=== PATIENT | male | born 1985 | race Caucasian/White ===

== ENCOUNTER 2016-08-19 17:03 | Emergency (ER) | payer BC, OTHER ==
[~2016-08-19] VITALS: Ht 175.3 cm; Wt 82.0 kg
[~2016-08-19 17:03] MED LIST: AMPH10TA2 PO; CHOL100010 PO; METH5TAB4 PO; MULT-506 PO
[2016-08-19 17:25] VITALS: TEMP 37.7; Ht 175.3 cm; Wt 82.0 kg
[2016-08-19] MEDS ORDERED: SODIUM CHLORIDE 0.9% 1000ML 1,000 ML IV STA (18:12)
[2016-08-19] MEDS ORDERED: KETOROLAC TROMETHAMINE 30 MG/ML VIAL IV STA (18:12)
--- NOTE | 2016-08-19 18:14 | EMERGENCY ROOM VISIT NOTE ---
History Report prepared by Danuta: Umer Camacho Under the Supervision of: Dr. Matthew Grace M.D. First contact with patient: 18:06 Chief Complaint: REFERRED BY DOCTOR Stated Complaint: RUNNY NOSE, COUGH, NIGHT SWEATS, MILD FEVER, WEAK History of Present Illness The patient is a 31 year old male who presents to the Emergency Room with complaints of flu-like symptoms that began 4 days ago. The patient was referred to the ED by his doctor due to his persistent symptoms. The patient has been experiencing rhinorrhea, cough, chills, diaphoresis, fever, sore throat, and fever. He took Tylenol a couple of hours ago to try to moderate his symptoms. He denies any problems urinating or defecating. Source of History: patient Onset: 4 days ago Position: other (global) Symptom Intensity: moderate Quality: other (flu-like symptoms) Timing: other (persistent) Associated Symptoms: + chills, + cough, + diaphoresis, + fevers, + sorethroat, + weakness, No diarrhea, No hematochezia, No melena, No urinary symptoms Note: He has rhinorrhea. Review of Systems See HPI for pertinent positives & negatives. A total of 10 systems reviewed and were otherwise negative. Past Medical & Surgical Medical Problems: (1) ADHD (attention deficit hyperactivity disorder) (2) Circumcision Family History Patient reports no known family medical history. Social History Smoking Status: Never Smoker Smokeless Tobacco Use: No Alcohol Use: occasionally Marital Status: single Occupation Status: unemployed Current/Historical Medications Scheduled Cholecalciferol (Vitamin D3), 5,000 INTER.UNIT PO DAILY Methylphenidate (Ritalin), 5 MG PO QAM Prednisone (Prednisone Tab), 0 PO DAILY Sertraline (Zoloft), 100 MG PO DAILY Scheduled PRN Hydrocodone W/ Homatropine (Hycodan 5/1.5MG 5 Ml), 5 ML PO HS PRN for Cough Allergies Coded Allergies: No Known Allergies (Unverified , 11/18/11) Physical Exam Vital Signs Date Time Temp Pulse Resp B/P Pulse Ox O2 Delivery O2 Flow Rate FiO2 08/19/16 20:18 102 18 126/71 100 Room Air 08/19/16 19:43 93 18 120/71 100 Nebulizer 15.0 08/19/16 18:51 76 18 120/78 100 Nebulizer 15.0 2/20/17 18:41 79 20 96 Room Air 08/19/16 18:38 100 Venturi Mask 15.0 08/19/16 17:25 37.7 84 18 120/77 98 Room Air Physical Exam GENERAL: Patient is a healthy-appearing well-nourished HEAD: Normocephalic atraumatic EYES: Ocular movements intact pupils equal and react to light OROPHARYNX mucous membranes are moist no exudates present no erythema or edema present NECK: Supple no nuchal rigidity. No evidence of meningitis or encephalitis on exam. CHEST: Good equal expansion LUNGS: Clear and equal to auscultation CARDIAC: Normal S1 and S2 ABDOMEN: Soft nontender no guarding BACK: No CVA tenderness EXTREMITIES: No pain upon palpation normal muscle strength in all groups no clubbing cyanosis or edema NEURO: Patient is following commands is answering questions appropriately. Alert and oriented x3 Cranial Nerves 2-12 grossly intact Medical Decision & Procedures ER Provider Diagnostic Interpretation: X-ray results are stated below per interpretation by me and the radiologist: CHEST ONE VIEW PORTABLE CLINICAL HISTORY: Pt c/o SOB dyspnea COMPARISON STUDY: None FINDINGS: The bones soft tissues and hemidiaphragms are normal. The cardiomediastinal silhouette is normal. The lungs are clear. The pulmonary vasculature is normal. IMPRESSION: Negative chest. Electronically signed by: Mumtaz Bond M.D. 08/19/2016 7:02 PM Dictated Date/Time: 08/19/2016 7:01 PM Laboratory Results 08/19/16 18:38 Red Blood Count 4.70, Mean Corpuscular Volume 85.1, Mean Corpuscular Hemoglobin 29.8, Mean Corpuscular Hemoglobin Concent 35.0, Mean Platelet Volume 9.8, Neutrophils (%) (Auto) 66.6, Lymphocytes (%) (Auto) 17.0, Monocytes (%) (Auto) 15.0, Eosinophils (%) (Auto) 0.6, Basophils (%) (Auto) 0.4, Neutrophils # (Auto ) 4.67, Lymphocytes # (Auto) 1.19, Monocytes # (Auto) 1.05, Eosinophils # (Auto ) 0.04, Basophils # (Auto) 0.03 08/19/16 18:38 Test 08/19/16 18:38 White Blood Count 7.01 K/uL (4.8-10.8) Red Blood Count 4.70 M/uL (4.7-6.1) Hemoglobin 14.0 g/dL (14.0-18.0) Hematocrit 40.0 % (42-52) Mean Corpuscular Volume 85.1 fL (80-100) Mean Corpuscular Hemoglobin 29.8 pg (25-34) Mean Corpuscular Hemoglobin Concent 35.0 g/dl (32-36) Platelet Count 244 K/uL (130-400) Mean Platelet Volume 9.8 fL (7.4-10.4) Neutrophils (%) (Auto) 66.6 % Lymphocytes (%) (Auto) 17.0 % Monocytes (%) (Auto) 15.0 % Eosinophils (%) (Auto) 0.6 % Basophils (%) (Auto) 0.4 % Neutrophils # (Auto) 4.67 K/uL (1.4-6.5) Lymphocytes # (Auto) 1.19 K/uL (1.2-3.4) Monocytes # (Auto) 1.05 K/uL (0.11-0.59) Eosinophils # (Auto) 0.04 K/uL (0-0.5) Basophils # (Auto) 0.03 K/uL (0-0.2) RDW Standard Deviation 40.2 fL (36.4-46.3) RDW Coefficient of Variation 12.9 % (11.5-14.5) Immature Granulocyte % (Auto) 0.4 % Immature Granulocyte # (Auto) 0.03 K/uL (0.00-0.02) Anion Gap 11.0 mmol/L (3-11) Est Creatinine Clear Calc Drug Dose 109.0 ml/min Estimated GFR () 117.4 Estimated GFR (Non- 101.3 BUN/Creatinine Ratio 5.1 (10-20) Calcium Level 8.9 mg/dl (8.5-10.1) Total Bilirubin 0.4 mg/dl (0.2-1) Direct Bilirubin < 0.1 mg/dl (0-0.2) Aspartate Amino Transf (AST/SGOT) 29 U/L (15-37) Alanine Aminotransferase (ALT/SGPT) 53 U/L (12-78) Alkaline Phosphatase 96 U/L (45-117) Total Protein 7.5 gm/dl (6.4-8.2) Albumin 4.1 gm/dl (3.4-5.0) Monoscreen NEG (NEG) Influenza Type A (RT-PCR) Neg for Influ A (NEG) Influenza Type A Antigen Neg for Influ A (NEG) Influenza Type B Antigen Neg for Influ B (NEG) Influenza Type B (RT-PCR) Neg for Influ B (NEG) Labs reviewed by ED physician. Medications Administered Medications (Trade) Dose Ordered Sig/Seda Route Start Time Stop Time Status Last Admin Dose Admin Albuterol/ Ipratropium 12 ml 12 ml ONE ONCE INH 08/19/16 18:15 08/19/16 18:16 DC 08/19/16 18:40 12 ML Sodium Chloride (Nss 1000ml) 1,000 ml @ 999 mls/hr Q1H1M STAT IV 08/19/16 18:12 08/19/16 19:12 DC 08/19/16 18:49 999 MLS/HR Ketorolac Tromethamine (Toradol Inj) 30 mg NOW STAT IV 08/19/16 18:12 08/19/16 18:15 DC 08/19/16 18:50 30 MG Albuterol (Ventolin Hfa Inhaler) 2 puffs NOW ONCE INH 08/19/16 19:00 08/19/16 19:01 DC 08/19/16 20:05 2 PUFFS Methylprednisolone Sodium Succinate (Solu-Medrol IV) 60 mg NOW STAT IV 08/19/16 19:13 08/19/16 19:15 DC 08/19/16 20:05 60 MG Hydrocodone Bit/ Homatropine Methylb (Hycodan Elix Homepack 5/1.5MG/ 5ML) 1 homepack UD ONCE PO 08/19/16 19:30 08/19/16 19:31 DC 08/19/16 20:05 1 HOMEPACK ED Course 1806: Past medical records reviewed. The patient was evaluated in room B8. A complete history and physical examination was performed. 1811: Toradol Inj 30 mg IV, Sodium Chloride 1000 ml @ 999 mls/hr IV 1814: Duoneb 12 ml INH 1900: Albuterol 2 puffs INH 1912: Solu-Medrol IV 60 mg IV 1929: Hydrocodone Bit/ Homatropine Methylb 1 homepack PO 1939: Upon reexamination the patient is resting. I discussed results and treatment plan with the patient. He verbalizes agreement and understanding. The patient is ready for discharge. Medical Decision Etiologies such as viral syndrome, otitis, pharyngitis, pneumonia, influenza, meningitis, urinary tract infection, sepsis, bacteremia, as well as others were entertained. This is a 31-year-old male who presents emergency department. He is well in appearance. Patient's concern over upper respiratory tract like infection that has been ongoing for the past several days. In the emergency department he was given Toradol, breathing treatment. His chest x-ray has no evidence of pneumonia. Repeat examination revealed much improvement the patient's symptoms. I will try the patient on prednisone as well as an albuterol breathing treatment. Patient was in agreement with the treatment plan. Impression Primary Impression: URI (upper respiratory infection) Scribe Attestation The scribe's documentation has been prepared under my direction and personally reviewed by me in its entirety. I confirm that the note above accurately reflects all work, treatment, procedures, and medical decision making performed by me. Departure Information Dispostion Home / Self-Care Prescriptions Prednisone (Prednisone Tab) 20 Mg Tab 0 PO DAILY, #7 TAB 2 TABS DAILY FOR 2 DAYS, THEN 1 TAB DAILY FOR 2 DAYS, THEN 1/2 TAB DAILY FOR 2 DAYS. Prov: Matthew Grace MD 08/19/16 Hydrocodone W/ Homatropine (HYCODAN 5/1.5MG 5 ML) 1 Syp Syp 5 ML PO HS Y for Cough, #120 ML Prov: Matthew Grace MD 08/19/16 Referrals David Acosta MD (PCP) Forms HOME CARE DOCUMENTATION FORM, IMPORTANT VISIT INFORMATION, WORK / SCHOOL INSTRUCTIONS Patient Instructions ED URI Viral, My [facility] [place] Additional Instructions Use Inhaler twice every 6 hours You received narcotic or benzodiazepene medication while in the emergency room today. Do not drive, operate heavy machinery, or drink alcohol under the influence of this medication. Take 600 mg Ibuprofen every 6 hours Take 1000 mg Tylenol every 6 hours Culture results are usually available in approx 48 hours You have been examined and treated today on an emergency basis only. This is not a substitute for, or an effort to provide, complete comprehensive medical care. It is impossible to recognize and treat all injuries or illnesses in a single emergency department visit. It is therefore important that you follow up closely with DR Acosta. Call as soon as possible for an appointment. Thank you for your time and consideration. I look forward to speaking with you again soon. Please don't hesitate to call us if you have any questions. Problem Qualifiers Primary Impression: URI (upper respiratory infection) URI type: unspecified viral URI Qualified Codes: J06.9 - Acute upper respiratory infection, unspecified; B97.89 - Other viral agents as the cause of diseases classified elsewhere
[2016-08-19] MEDS ORDERED: ALBUT/IPRATROP 3MG/0.5MG NEB 3 ML VIAL INH ONE (18:15)
[2016-08-19 18:38] VITALS: O2SAT 100
[2016-08-19 18:41] VITALS: PULSE 79; O2SAT 96
[2016-08-19 18:58] LABS: BASO % 0.4 %; BASO ABS # 0.03 K/uL (0-0.2); COMPLETE YES; EOS % 0.6 %; IG% 0.4 %; LYMPH ABS # 1.19 K/uL (1.2-3.4); MEAN CELL VOLUME 85.1 fL (80-100); MEAN CORPUSCULAR HEMOGLOBIN 29.8 pg (25-34); MEAN PLATELET VOLUME 9.8 fL (7.4-10.4); NEUT % 66.6 %; PLATELET COUNT 244 K/uL (130-400); WHITE BLOOD COUNT 7.01 K/uL (4.8-10.8)
[2016-08-19] MEDS ORDERED: ALBUTEROL HFA 8 GM INHALER INH ONE (19:00)
--- NOTE | 2016-08-19 19:03 | DIAGNOSTIC IMAGING REPORT ---
CHEST ONE VIEW PORTABLE CLINICAL HISTORY: Pt c/o SOB dyspnea COMPARISON STUDY: None FINDINGS: The bones soft tissues and hemidiaphragms are normal. The cardiomediastinal silhouette is normal. The lungs are clear. The pulmonary vasculature is normal. IMPRESSION: Negative chest. Electronically signed by: Mumtaz Bond M.D. 08/19/2016 7:02 PM Dictated Date/Time: 08/19/2016 7:01 PM
[2016-08-19] MEDS ORDERED: METHYLPREDNISOLONE 125 MG VIAL IV STA (19:13)
[2016-08-19 19:16] LABS: ALT/SGPT 53 U/L (12-78); BLOOD UREA NITROGEN 5 mg/dl (7-18); BUN/CREATININE RATIO 5.1 (10-20); CALCIUM 8.9 mg/dl (8.5-10.1); CARBON DIOXIDE 26 mmol/L (21-32); CHLORIDE 104 mmol/L (98-107); GLUCOSE 91 mg/dl (70-99); POTASSIUM 3.7 mmol/L (3.5-5.1); SODIUM 141 mmol/L (136-145)
[2016-08-19] MEDS ORDERED: SERT-234 PO (19:16)
[2016-08-19] MEDS ORDERED: CHOLCAP5 PO (19:16)
[2016-08-19 19:19] LABS: ALKALINE PHOSPHATASE 96 U/L (45-117); AST/SGOT 29 U/L (15-37)
[2016-08-19] MEDS ORDERED: PRED20TA2 PO (19:26)
[2016-08-19] MEDS ORDERED: HYDR5SYP11 PO (19:26)
[2016-08-19] MEDS ORDERED: HYCODAN 60ML BOTTLE HOMEPACK PO ONE (19:30)
[2016-08-19 20:18] VITALS: BP 126/71; PULSE 102; O2SAT 100
[2016-08-19 20:56] LABS: INFLUENZA A PCR Neg for Influ A (NEG); INFLUENZA B PCR Neg for Influ B (NEG)
[2016-08-22 11:29] LABS: EBV EARLY ANTIGEN AB <0.91 INDEX; EPSTEIN BARR VIR CAPSID IGG 2.96 INDEX
== END 2016-08-19 20:23 | disposition home or self-care (01) ==
LOC: C.EDB 17:04
DX: B97.89 Other viral agents as the cause of diseases classified elsewhere (principal); F90.9 Attention-deficit hyperactivity disorder, unspecified type